=== PATIENT | male | born 1950 | race African-American/Black ===

== ENCOUNTER 2018-09-11 12:20 | Outpatient (CLI) | payer MEDICARE ==
--- NOTE | 2018-09-11 13:03 | ULT ---
SCROTAL ULTRASOUND: History: Right scrotal swelling. FINDINGS: Correlation made to a recent scrotal ultrasound, 09-02-18. Both testicles appear homogeneous. Testicles show normal blood flow with color doppler and spectral a nalysis. There is a large right hydrocele which has similar appearance to the prior study. There are small epi didymal cysts which are described previously. IMPRESSION: Large right hydrocele again noted. POS: [facility]
== END 2018-09-11 12:21 | disposition home or self-care (01) ==
LOC: SCSULT 12:20
PROVIDERS: ATTEND Specialist
DX: N50.9 Disorder of male genital organs, unspecified (principal); N43.3 Hydrocele, unspecified
CPT/HCPCS: 36415; 76870; 80053; 85025; 93976

== ENCOUNTER 2018-12-12 15:02 | Outpatient (CLI) | payer MEDICARE ==
[~2018-12-12 15:02] MED LIST: Gadobenate Dimeglumine 529 MG/1 ML (20ML VIAL) ONE
--- NOTE | 2018-12-12 17:00 | MRI ---
MRI Lumbar Spine with and without IV contrast: HISTORY: Low back pain. Chronic pain syndrome. COMPARISON: None FINDINGS: The right kidney is not visualized compatible with patient's history of prior right nephrectomy. A fe w tiny increased T2-weighted signal intensity foci are seen within the left kidney which do not demonstrate enhancement on the postcontrast images and are likely due to tiny cysts. Conus medullaris is normal in morphology and terminates at the T12-L1 level. There is generalized heterogeneity of the bone marrow. Focal area of increased T1 and T2-weighted sig nal intensity is seen in the L1 vertebral body likely due to a small hemangioma. There are endplate degenerative changes at the L3-4 level. L1-2: There is a broad-based disc osteophyte complex and mild facet hypertrophic changes. Mild narrow ing of the central spinal canal and neural foramina is present. L2-3: There is a broad-based disc osteophyte complex. Facet hypertrophic changes are seen. Mild ligam entous thickening is present with prominence of epidural fat posteriorly. Findings result in mild to moderate narrowing of the central spinal canal. There is [id number] right and severe left-si ded neural foraminal narrowing. L3-4: As noted above there are prominent endplate degenerative changes. There is loss of intervertebr al disc height. There is a broad-based disc osteophyte complex as well as facet hypertrophic changes. There is prominence of epidural fat posterior to thecal sac as well as laterally. There is m ild ligamentous thickening present at this level as well. Constellation of these findings result in moderate narrowing of the thecal sac. There is moderate to severe bilateral neural foraminal narrowin g. L4-5: There is a broad-based disc osteophyte complex present. There is severe left and moderate facet hypertrophic changes and ligamentous thickening. Findings result in severe narrowing of the central spinal canal. There is mild to moderate right and moderate to severe left-sided neural forami nal narrowing. L5-S1: There appears to be fusion of the L5 and S1 vertebral bodies with laminectomy defect seen post eriorly. No significant narrowing of the central spinal canal or neural foramina. There does appear to be mild enhancement adjacent to the facet joints at the L2-3, L3-4, and L4-5 lev els likely attributable to the inflammatory changes related to prominent facet degenerative changes. IMPRESSION: 1. Multilevel degenerative changes seen throughout the lumbar spine with prominence of the epidural f at at several levels. Multilevel neural foraminal and central canal narrowing is seen. 2. Evidence of right nephrectomy. Tiny left renal cysts are partially imaged.
== END 2018-12-12 15:03 | disposition home or self-care (01) ==
LOC: BICMRI 15:02
PROVIDERS: ATTEND Family Medicine
DX: G89.4 Chronic pain syndrome (principal); M54.5 Low back pain; M47.816 Spondylosis without myelopathy or radiculopathy, lumbar region; M48.061 Spinal stenosis, lumbar region without neurogenic claudication; N28.1 Cyst of kidney, acquired; Z90.5 Acquired absence of kidney
CPT/HCPCS: 72158; 82565

== ENCOUNTER 2021-07-17 12:50 | Inpatient (IN) | payer MEDICARE ==
[2021-07-17] MEDS ORDERED: Ondansetron PF 4 MG/2 ML Vial IVP PRN (22:16)
[2021-07-17] MEDS ORDERED: Ondansetron ODT 4 MG TAB PO PRN (22:16)
[2021-07-17] MEDS ORDERED: Acetaminophen 650 MG Suppository PR PRN (22:16)
[2021-07-17] MEDS ORDERED: Acetaminophen 325 MG TAB PO PRN (22:16)
[2021-07-18 00:17] VITALS: BMI 19.5
[2021-07-18] MEDS ORDERED: Melatonin 3 MG TAB PO SCH (01:45)
[2021-07-18 04:26] LABS: #Lymphocytes 0.8 thou/uL (1.20-3.40); #Monocytes 0.5 thou/uL (0.11-0.59); #Neutrophils 3.2 thou/uL (1.40-6.50); %Basophils 0.2 % (0.0-1.0); %Eosinophils 0.3 % (0.0-10.0); %Lymphocytes 17.8 % (21.0-51.0); %Monocytes 10.7 % (0.0-10.0); Hemoglobin 14.9 g/dL (14.0-18.0); Mean Corpuscular HGB CONC 31.4 g/dL (32.0-36.0); Mean Corpuscular Hemoglobin 25.6 pg (27.0-31.0); Mean Corpuscular Volume 81.5 fL (78.0-98.0); Mean Platelet Volume 7.1 fL (7.4-10.4); Platelet Count 316 thou/uL (130-400); RBC Distribution Width 13.9 % (11.5-14.5); Red Blood Cell (RBC) Count 5.81 mill/uL (4.70-6.10); White Blood Cell (WBC) Count 4.6 thou/uL (4.8-10.8)
[2021-07-18 04:40] LABS: Anion Gap 14 mmol/L (10-20); BUN (Urea Nitrogen) 14 mg/dL (8.4-25.7); Calc. Creatinine Clearance 43 mL/min (70-130); Calcium 9.4 mg/dL (7.8-10.44); Carbon Dioxide 27 mmol/L (23-31); Chloride 97 mmol/L (98-107); Glucose 166 mg/dL (80-115); Potassium 3.6 mmol/L (3.5-5.1); Sodium 134 mmol/L (136-145)
[2021-07-18] MEDS ORDERED: methylPREDNISolone Sod Succ 40 MG VIAL IVP SCH (09:00)
[2021-07-18] MEDS ORDERED: Enoxaparin Sodium 40 MG/0.4 ML SYRINGE SC SCH (09:00)
[2021-07-18] MEDS ORDERED: FLU VACC QS2021-22(65YR UP)/PF 240 MCG/0.7 ML SYRINGE IM ONE (09:00)
[2021-07-18] MEDS ORDERED: Azithromycin 500 MG in Sodium Chloride 0.9% 250 ML 250 ML IVPB SCH (12:00)
[2021-07-18 12:12] VITALS: BP 188/117; TEMP 97.5
[2021-07-18] MEDS ORDERED: cefTRIAXone\\ROCEPHIN 1 GM in Sodium Chloride 0.9% 100 ML IVPB SCH (13:00)
== END 2021-07-18 15:05 | disposition home or self-care (01) | DRG 193 ==
LOC: 2NO 12:50
PROVIDERS: ADMIT Internal Medicine; ATTEND Internal Medicine
DX: J18.9 Pneumonia, unspecified organism (principal); J96.01 Acute respiratory failure with hypoxia; J44.0 Chronic obstructive pulmonary disease with (acute) lower respiratory infection; J44.1 Chronic obstructive pulmonary disease with (acute) exacerbation; Z23 Encounter for immunization; E78.5 Hyperlipidemia, unspecified; F17.210 Nicotine dependence, cigarettes, uncomplicated; N28.89 Other specified disorders of kidney and ureter; R59.0 Localized enlarged lymph nodes; Z85.528 Personal history of other malignant neoplasm of kidney; Z90.5 Acquired absence of kidney; Z79.899 Other long term (current) drug therapy; Z79.82 Long term (current) use of aspirin; Z79.51 Long term (current) use of inhaled steroids
CPT/HCPCS: 36415; 80048; 85025; 90471; 90662; 90732; 94640; G0008; G0009; J1650; J2920; J7620

== ENCOUNTER 2023-12-10 21:15 | Inpatient (IN) | payer MEDICARE ==
[2023-12-10] MEDS ORDERED: Magnesium 2 GM/50 ML BAG (IN WATER) ONE (21:30)
[2023-12-10] MEDS ORDERED: Ketorolac Tromethamine 30 MG (1 mL) VIAL ONE (21:32)
[2023-12-10] MEDS ORDERED: cefTRIAXone (ROCEPHIN) 2 GM VIAL ONE (21:38)
[2023-12-10] MEDS ORDERED: Sodium Chloride 0.9% 100 ML ONE (21:39)
[2023-12-10 21:43] LABS: Hematocrit 47.8 % (42.0-52.0); Hemoglobin 15.7 g/dL (14.0-18.0); Mean Corpuscular HGB CONC 32.8 g/dL (32.0-36.0); Mean Corpuscular Hemoglobin 24.6 pg (27.0-31.0); Mean Platelet Volume 9.8 fL (7.4-10.4); Platelet Count 227 10x3/uL (130-400); RBC Distribution Width 15.7 % (11.5-14.5); Red Blood Cell (RBC) Count 6.37 mill/uL (4.70-6.10)
[2023-12-10 22:04] LABS: Anisocytosis SLIGHT = 6-15 cells HPF (0-5); Band 15 % (5-11); Eosinophils 1 % (0-10); Hypochromia SLIGHT = 6-15 cells HPF (0-5); Large Platelets 25.7 % (0-5); Lymphocytes 24 % (21-51); Microcytosis SLIGHT = 6-15 cells HPF (0-5); Monocytes 11 % (0-10); Neutrophil 49 % (42-75); Nucleated RBC (Manual Ct) 1 % (0); Platelet Adequacy Comment Platelets Normal; Reactive Lymphocytes 1 % (0-10); Target Cells SLIGHT = 2-5 cells HPF (0-1)
[2023-12-10 22:08] LABS: ALT (SGPT) 17 U/L (8-55); AST (SGOT) 38 U/L (5-34); Albumin 2.9 g/dL (3.4-4.8); Alkaline Phosphatase 54 U/L (40-110); Anion Gap 19 mmol/L (10-20); BUN (Urea Nitrogen) 14 mg/dL (8.4-25.7); Calc. Creatinine Clearance 0 mL/min (70-130); Calcium 8.2 mg/dL (7.8-10.44); Carbon Dioxide 22 mmol/L (23-31); Chloride 99 mmol/L (98-107); Estimated GFR 38; Globulin 3.1 g/dL (2.4-3.5); Glucose 86 mg/dL (83-110); Sodium 137 mmol/L (136-145)
[2023-12-10 22:11] LABS: Troponin I 0.037 ng/mL (< 0.028)
[2023-12-10 22:14] LABS: Actual Bicarbonate (HCO3a) 25.2 mEq/L (22-28); Base Excess (BEa) 1.9 mEq/L (-2.0 to +3.0); CO2 Tension 35.6 mmHg (35.0-45.0); Calcium, Ionized (arterial) 1.07 mmol/L (1.12-1.30); Carboxyhemoglobin (COHb) 1.3 gm% (0.0-3.0); Hematocrit-ABG 44 % (42.0-52.0); Hemoglobin (Hb) 15.1 g/dL (14.0-18.0); O2 Tension (PaO2), arterial 69.8 mmHg (> 70.0); Potassium - ABG Lab 2.78 mmol/L (3.70-5.30); pH, Arterial 7.468 (7.35-7.45)
[2023-12-10] MEDS ORDERED: Azithromycin 500 MG VIAL ONE (22:14)
[2023-12-10 22:15] LABS: Puncture Site ART
[2023-12-10] MEDS ORDERED: Albuterol 1.25 MG (3 mL) NEB ONE (22:31)
[2023-12-11] MEDS ORDERED: Albuterol 2.5 MG (3 mL) NEB NEB PRN (02:14)
[2023-12-11] MEDS: Ipratropium/Albuterol 3 ML NEB NEB SCH ×2 (07:24→10:42)
[2023-12-11] MEDS: Pantoprazole 40 MG VIAL IVP SCH (08:52)
[2023-12-11] MEDS: methylPREDNISolone Sod Succ 40 MG VIAL IVP SCH (08:52)
[2023-12-11] MEDS: Heparin 5,000 UNITS/ML VIAL SC SCH (08:53)
[2023-12-11 09:22] VITALS: BMI 41.5
[2023-12-11 09:32] LABS: #Basophils 0.04 10x3/uL (0.0-0.2); #Eosinphils Less than 0.03 10x3/uL (0.0-0.7); %Basophils 0.4 % (0.0-1.0); %Eosinophils 0.1 % (0.0-10.0); %Lymphocytes 12.7 % (21.0-51.0); %Monocytes 3.6 % (0.0-10.0); %Neutrophils 82.5 % (42.0-75.0); Hematocrit 49.1 % (42.0-52.0); Hemoglobin 15.7 g/dL (14.0-18.0); Mean Corpuscular Hemoglobin 24.5 pg (27.0-31.0); Mean Corpuscular Volume 76.7 fL (78.0-98.0); Mean Platelet Volume 9.4 fL (7.4-10.4); Platelet Count 229 10x3/uL (130-400); RBC Distribution Width 16.1 % (11.5-14.5)
[2023-12-11 09:57] LABS: Influenza A by NAA Not Detected (NotDetected); Influenza B by NAA Not Detected (NotDetected); SARS-CoV-2 NAA Rapid Test Not Detected (NotDetected)
[2023-12-11 09:58] LABS: ALT (SGPT) 19 U/L (8-55); AST (SGOT) 40 U/L (5-34); Albumin 2.7 g/dL (3.4-4.8); Alkaline Phosphatase 51 U/L (40-110); Anion Gap 20 mmol/L (10-20); BUN (Urea Nitrogen) 19 mg/dL (8.4-25.7); Bilirubin, Total 1.1 mg/dL (0.2-1.2); Calc. Creatinine Clearance 65 mL/min (70-130); Calcium 8.5 mg/dL (7.8-10.44); Carbon Dioxide 21 mmol/L (23-31); Chloride 101 mmol/L (98-107); Estimated GFR 36; Globulin 3.8 g/dL (2.4-3.5); Glucose 224 mg/dL (83-110); Magnesium 1.9 mg/dL (1.6-2.6); Phosphorus 3.4 mg/dL (2.3-4.7); Potassium 3.3 mmol/L (3.5-5.1); Protein, Total 6.5 g/dL (5.8-8.1); Sodium 139 mmol/L (136-145)
[2023-12-11] MEDS: Potassium Chloride 20 MEQ in Premix 1 BAG IVPB SCH (10:36)
[2023-12-11 12:44] LABS: Bacteria/HPF None Seen HPF (None Seen); Bilirubin Negative (Negative); Blood, Urine 2+ (Negative); Clarity Turbid (Clear); Glucose, Urine (Dipstick) Normal (Negative); Ketone, Urine 10 mg/dL (Negative); Leukocyte Negative Leu/uL (Negative); Nitrite Negative (Negative); Protein, Urine (Dipstick) 100 mg/dL (Neg-Trace); RBC/HPF 0-3 HPF (0-3); Specific Gravity, Urine 1.018 (1.002-1.036); Squamous Epithelial 0-3 HPF (0-3); WBC/HPF 0-3 HPF (0-3); pH, Urine 5.5 (5.0-9.0)
[2023-12-11] MEDS ORDERED: Electrolyte Replacement Protocol FS PRN (12:45)
[2023-12-11] MEDS: Electrolyte Replacement Protocol 1 EACH FS ONE (13:30)
[2023-12-11] MEDS: Magnesium 2 GM/50 ML(in water) 2 GM in Premix 1 BAG IVPB SCH (15:28)
[2023-12-11] MEDS: Furosemide 40 MG TAB PO SCH (17:49)
[2023-12-11 19:15] LABS: Potassium 3.2 mmol/L (3.5-5.1)
[2023-12-11] MEDS: cefTRIAXone\\ROCEPHIN 1 GM in Sodium Chloride 0.9% 100 ML IVPB SCH (21:15)
[2023-12-11] MEDS: Azithromycin 500 MG in Sodium Chloride 0.9% 250 ML 250 ML IVPB SCH (22:34)
[2023-12-11] MEDS: Albumin 25% 25 GM (100 mL) BOT IVPB SCH (23:54)
[2023-12-12] MEDS: Potassium Chloride 20 MEQ in Premix 1 BAG IVPB SCH (01:09)
[2023-12-12 06:25] LABS: #Basophils 0.03 10x3/uL (0.0-0.2); #Eosinphils Less than 0.03 10x3/uL (0.0-0.7); %Basophils 0.2 % (0.0-1.0); %Eosinophils 0.1 % (0.0-10.0); %Lymphocytes 6.5 % (21.0-51.0); %Monocytes 7.3 % (0.0-10.0); Hematocrit 48.5 % (42.0-52.0); Hemoglobin 15.6 g/dL (14.0-18.0); Mean Corpuscular HGB CONC 32.2 g/dL (32.0-36.0); Mean Corpuscular Hemoglobin 24.7 pg (27.0-31.0); Mean Corpuscular Volume 76.7 fL (78.0-98.0); Platelet Count 297 10x3/uL (130-400); RBC Distribution Width 17.1 % (11.5-14.5); Red Blood Cell (RBC) Count 6.32 mill/uL (4.70-6.10)
[2023-12-12 06:35] LABS: Anion Gap 18 mmol/L (10-20); BUN (Urea Nitrogen) 21 mg/dL (8.4-25.7); Calc. Creatinine Clearance 88 mL/min (70-130); Calcium 9.1 mg/dL (7.8-10.44); Carbon Dioxide 20 mmol/L (23-31); Chloride 104 mmol/L (98-107); Estimated GFR 50; Glucose 190 mg/dL (83-110); Potassium 3.5 mmol/L (3.5-5.1); Sodium 138 mmol/L (136-145)
[2023-12-12] MEDS: Pantoprazole DR 40 MG TAB PO SCH (08:42)
[2023-12-12] MEDS: Cefdinir 300 MG CAP PO SCH (08:42)
[2023-12-12] MEDS: predniSONE 20 MG TAB PO SCH (08:43)
[2023-12-12] MEDS: Azithromycin 250 MG TAB PO SCH (08:43)
[2023-12-12 10:35] LABS: Potassium 3.6 mmol/L (3.5-5.1)
[2023-12-12] MEDS: Albumin 25% 25 GM (100 mL) BOT IVPB SCH (12:33)
[2023-12-13] MEDS: Melatonin 3 MG TAB PO PRN (01:10)
[2023-12-13 05:36] VITALS: BMI 42.4
[2023-12-13 07:15] LABS: Anion Gap 13 mmol/L (10-20); BUN (Urea Nitrogen) 17 mg/dL (8.4-25.7); Calc. Creatinine Clearance 115 mL/min (70-130); Calcium 9.1 mg/dL (7.8-10.44); Carbon Dioxide 26 mmol/L (23-31); Chloride 104 mmol/L (98-107); Estimated GFR 69; Glucose 103 mg/dL (83-110); Potassium 2.9 mmol/L (3.5-5.1); Sodium 140 mmol/L (136-145)
[2023-12-13 07:25] LABS: #Basophils Less than 0.03 10x3/uL (0.0-0.2); #Eosinphils Less than 0.03 10x3/uL (0.0-0.7); %Basophils 0.1 % (0.0-1.0); %Monocytes 6.4 % (0.0-10.0); %Neutrophils 81.8 % (42.0-75.0); Hematocrit 39.7 % (42.0-52.0); Hemoglobin 13.3 g/dL (14.0-18.0); Mean Corpuscular HGB CONC 33.5 g/dL (32.0-36.0); Mean Corpuscular Hemoglobin 25.2 pg (27.0-31.0); Mean Corpuscular Volume 75.3 fL (78.0-98.0); Mean Platelet Volume 10.6 fL (7.4-10.4); Platelet Count 339 10x3/uL (130-400); RBC Distribution Width 15.5 % (11.5-14.5); Red Blood Cell (RBC) Count 5.27 mill/uL (4.70-6.10)
[2023-12-13] MEDS: Potassium Chloride 20 MEQ TAB PO SCH (08:03)
[2023-12-13] MEDS: Furosemide 100 MG (10 mL) VIAL SLOW IVP SCH (10:46)
[2023-12-13] MEDS: Furosemide 40 MG TAB PO SCH (13:04)
[2023-12-13 18:50] LABS: HBsAg Index 0.38 S/CO (0-0.99); Hep B Surf Ag NONREACTIVE S/CO (NonReactive)
[2023-12-14] MEDS ORDERED: Amlodipine 5 MG TAB PO SCH (09:00)
[2023-12-14 09:02] LABS: Anisocytosis MARKED = >30 cells HPF (0-5); Band 13 % (5-11); Eosinophils 1 % (0-10); Large Platelets 9.8 % (0-5); Lymphocytes 16 % (21-51); Macrocytosis MODERATE=16-30 cells HPF (0-5); Metamyelocyte 2 % (0-0); Monocytes 7 % (0-10); Neutrophil 62 % (42-75); Ovalocytes SLIGHT = 2-5 cells HPF (0-1); Platelet Adequacy Comment Platelets Normal; Target Cells SLIGHT = 2-5 cells HPF (0-1)
[2023-12-14] MEDS: Amlodipine 10 MG TAB PO SCH (09:07)
[2023-12-14] MEDS: Allopurinol 100 MG TAB PO SCH (09:07)
[2023-12-14] MEDS: Isosorbide Mononitrate 30 MG ER.TAB PO SCH (09:07)
[2023-12-14] MEDS: Metoprolol Tartrate 25 MG TAB PO SCH (09:08)
[2023-12-14 09:36] LABS: Hematocrit 43.2 % (42.0-52.0); Hemoglobin 14.2 g/dL (14.0-18.0); Mean Corpuscular HGB CONC 32.9 g/dL (32.0-36.0); Mean Corpuscular Hemoglobin 24.6 pg (27.0-31.0); Mean Corpuscular Volume 74.9 fL (78.0-98.0); Mean Platelet Volume 10.2 fL (7.4-10.4); Platelet Count 367 10x3/uL (130-400); RBC Distribution Width 16.1 % (11.5-14.5); Red Blood Cell (RBC) Count 5.77 mill/uL (4.70-6.10)
[2023-12-14 10:33] LABS: Anion Gap 17 mmol/L (10-20); BUN (Urea Nitrogen) 17 mg/dL (8.4-25.7); Calc. Creatinine Clearance 110 mL/min (70-130); Calcium 9.3 mg/dL (7.8-10.44); Carbon Dioxide 25 mmol/L (23-31); Chloride 108 mmol/L (98-107); Estimated GFR 66; Glucose 73 mg/dL (83-110); Potassium 3.5 mmol/L (3.5-5.1); Sodium 146 mmol/L (136-145)
[2023-12-14] MEDS: Potassium Chloride 20 MEQ TAB PO SCH (13:24)
[2023-12-14 18:02] VITALS: TEMP 97.3
[2023-12-14 18:54] VITALS: BP 135/75
== END 2023-12-14 19:11 | disposition home or self-care (01) | DRG 871 ==
LOC: ERS 21:15 → CCU 22:36 → T4-B 12-12 18:08
PROVIDERS: ADMIT Student in an Organized Health Care Education/Training Program; ATTEND Family Medicine
DX: A41.9 Sepsis, unspecified organism (principal); J18.9 Pneumonia, unspecified organism; J96.01 Acute respiratory failure with hypoxia; N17.9 Acute kidney failure, unspecified; E87.1 Hypo-osmolality and hyponatremia; J44.0 Chronic obstructive pulmonary disease with (acute) lower respiratory infection; J45.909 Unspecified asthma, uncomplicated; I10 Essential (primary) hypertension; E78.5 Hyperlipidemia, unspecified; E87.6 Hypokalemia; Z79.899 Other long term (current) drug therapy
CPT/HCPCS: 36415; 36416; 70450; 71045; 76770; 80048; 80053; 81001; 82805; 83605; 83735; 83880; 84100; 84484; 85025; 87040; 87340; 93005; 94640; 94660; C9113; J0456; J0696; J1644; J1885; J1940; J2920; J3475; J3480; J3490; J7050; J7512; J7620; P9047

== ENCOUNTER 2024-05-07 12:54 | Outpatient (CLI) | payer MEDICARE | END 2024-05-07 12:55 | disposition home or self-care (01) | LOC: CT 12:54 | PROVIDERS: ATTEND Internal Medicine Cardiovascular Disease | DX: I71.21 Aneurysm of the ascending aorta, without rupture (principal); I77.810 Thoracic aortic ectasia; K80.20 Calculus of gallbladder without cholecystitis without obstruction; I31.39 Other pericardial effusion (noninflammatory); M47.814 Spondylosis without myelopathy or radiculopathy, thoracic region; M51.34 Other intervertebral disc degeneration, thoracic region; R59.1 Generalized enlarged lymph nodes; J84.10 Pulmonary fibrosis, unspecified; J98.4 Other disorders of lung | CPT/HCPCS: 36415; 71275; 82565 ==

== ENCOUNTER 2024-06-12 13:32 | Inpatient (IN) | payer MEDICARE ==
[2024-06-12] MEDS ORDERED: Acetaminophen 325 MG TAB PO PRN (19:16)
[2024-06-12] MEDS ORDERED: Ondansetron ODT 4 MG TAB PO PRN (19:16)
[2024-06-12] MEDS ORDERED: Ondansetron PF 4 MG/2 ML Vial IVP PRN (19:16)
[2024-06-12] MEDS ORDERED: hydrALAZINE 20 MG/ML VIAL SLOW IVP PRN ×2 (19:16→19:41)
[2024-06-12 19:40] VITALS: BMI 41.9
[2024-06-12] MEDS: Aspirin 81 mg Enteric Coated Tablet PO SCH (19:58)
[2024-06-12] MEDS: Rosuvastatin 20 MG TAB PO SCH (20:00)
[2024-06-12] MEDS ORDERED: Ipratropium/Albuterol 3 ML NEB NEB PRN (22:30)
[2024-06-13] MEDS: Ipratropium/Albuterol 3 ML NEB NEB SCH ×2 (00:08→07:31)
[2024-06-13] MEDS: Mometasone 200 MCG/Formoterol 5 MCG 120 PUFF INHALER INH SCH ×2 (00:09→07:31)
[2024-06-13 05:32] LABS: #Basophils Less than 0.03 10x3/uL (0.0-0.2); #Eosinophils Less than 0.03 10x3/uL (0.0-0.7); %Basophils 0.2 % (0.0-1.0); %Lymphocytes 22.4 % (21.0-51.0); %Monocytes 3.9 % (0.0-10.0); %Neutrophils 73.2 % (42.0-75.0); Hematocrit 42.1 % (42.0-52.0); Hemoglobin 13.7 g/dL (14.0-18.0); Mean Corpuscular HGB CONC 32.5 g/dL (32.0-36.0); Mean Corpuscular Hemoglobin 24.4 pg (27.0-31.0); Mean Corpuscular Volume 74.9 fL (78.0-98.0); Mean Platelet Volume 10.2 fL (7.4-10.4); Platelet Count 276 10x3/uL (130-400); RBC Distribution Width 16.8 % (11.5-14.5); Red Blood Cell (RBC) Count 5.62 mill/uL (4.70-6.10)
[2024-06-13 05:57] LABS: Anion Gap 13 mmol/L (10-20); BUN (Urea Nitrogen) 13 mg/dL (8.4-25.7); Calc. Creatinine Clearance 102 mL/min (70-130); Calcium 9.7 mg/dL (7.8-10.44); Carbon Dioxide 23 mmol/L (23-31); Cardiac Risk 2.6 (Less than 4.5); Chloride 109 mmol/L (98-107); Cholesterol 143 mg/dl (< 200 Desired); Estimated GFR 70; Glucose 119 mg/dL (83-110); HDL Cholesterol 56 mg/dL (>60 Neg Risk); LDL Cholesterol, Calculated 75 mg/dL; Magnesium 1.9 mg/dL (1.6-2.6); Potassium 4.1 mmol/L (3.5-5.1); Sodium 141 mmol/L (136-145); Triglycerides 62 mg/dL (Less than 150)
[2024-06-13 06:52] LABS: Anisocytosis SLIGHT = 6-15 cells HPF (0-5); Elliptocytes SLIGHT = 2-5 cells HPF (0-1); Macrocytosis SLIGHT = 6-15 cells HPF (0-5); Platelet Adequacy Comment Platelets Normal; Target Cells SLIGHT = 2-5 cells HPF (0-1)
[2024-06-13] MEDS: Aspirin 81 mg Enteric Coated Tablet PO SCH (11:46)
[2024-06-13] MEDS ORDERED: Albuterol 200 PUFF (6.7GM INHALER) INH PRN (13:48)
[2024-06-13] MEDS ORDERED: HYDROcodone/Acetaminophen 10/325 mg Tablet PO PRN (13:48)
[2024-06-13 19:55] VITALS: BMI 41.9
[2024-06-13] MEDS: Varenicline Tartrate 0.5 MG TAB PO SCH (20:14)
[2024-06-14 04:03] LABS: #Basophils Less than 0.03 10x3/uL (0.0-0.2); #Eosinophils Less than 0.03 10x3/uL (0.0-0.7); %Basophils 0.3 % (0.0-1.0); %Lymphocytes 36.5 % (21.0-51.0); %Monocytes 10.2 % (0.0-10.0); %Neutrophils 52.4 % (42.0-75.0); Hematocrit 40.9 % (42.0-52.0); Hemoglobin 13.3 g/dL (14.0-18.0); Mean Corpuscular HGB CONC 32.5 g/dL (32.0-36.0); Mean Corpuscular Hemoglobin 24.3 pg (27.0-31.0); Mean Corpuscular Volume 74.6 fL (78.0-98.0); Mean Platelet Volume 9.9 fL (7.4-10.4); Platelet Count 258 10x3/uL (130-400); Red Blood Cell (RBC) Count 5.48 mill/uL (4.70-6.10)
[2024-06-14 04:29] LABS: Anion Gap 14 mmol/L (10-20); BUN (Urea Nitrogen) 15 mg/dL (8.4-25.7); Calc. Creatinine Clearance 107 mL/min (70-130); Calcium 9.3 mg/dL (7.8-10.44); Carbon Dioxide 24 mmol/L (23-31); Chloride 109 mmol/L (98-107); Estimated GFR 74; Glucose 95 mg/dL (83-110); Potassium 3.5 mmol/L (3.5-5.1); Sodium 143 mmol/L (136-145)
[2024-06-14 05:25] LABS: Microcytosis SLIGHT = 6-15 cells HPF (0-5); Platelet Adequacy Comment Platelets Normal
[2024-06-14] MEDS: Hydrocortisone 10 mg Tablet PO SCH (08:33)
[2024-06-14] MEDS: Amlodipine 10 MG TAB PO SCH (08:33)
[2024-06-14] MEDS: Isosorbide Mononitrate 30 MG ER.TAB PO SCH (08:34)
[2024-06-14] MEDS: Metoprolol Tartrate 25 MG TAB PO SCH (08:34)
[2024-06-14] MEDS: Allopurinol 100 MG TAB PO SCH (08:34)
[2024-06-14] MEDS: Furosemide 40 MG TAB PO SCH (08:34)
[2024-06-14] MEDS ORDERED: Amlodipine 5 MG TAB PO SCH (09:00)
[2024-06-15 05:42] LABS: #Basophils Less than 0.03 10x3/uL (0.0-0.2); %Basophils 0.3 % (0.0-1.0); %Eosinophils 1.5 % (0.0-10.0); %Lymphocytes 46.5 % (21.0-51.0); %Monocytes 9.6 % (0.0-10.0); %Neutrophils 41.6 % (42.0-75.0); Hematocrit 42.7 % (42.0-52.0); Hemoglobin 13.8 g/dL (14.0-18.0); Mean Corpuscular HGB CONC 32.3 g/dL (32.0-36.0); Mean Corpuscular Hemoglobin 24.8 pg (27.0-31.0); Mean Corpuscular Volume 76.7 fL (78.0-98.0); Mean Platelet Volume 9.8 fL (7.4-10.4); Platelet Count 251 10x3/uL (130-400); RBC Distribution Width 17.1 % (11.5-14.5); Red Blood Cell (RBC) Count 5.57 mill/uL (4.70-6.10)
[2024-06-15 06:05] LABS: Anion Gap 14 mmol/L (10-20); BUN (Urea Nitrogen) 14 mg/dL (8.4-25.7); Calc. Creatinine Clearance 93 mL/min (70-130); Calcium 9.1 mg/dL (7.8-10.44); Carbon Dioxide 24 mmol/L (23-31); Chloride 106 mmol/L (98-107); Estimated GFR 62; Glucose 91 mg/dL (83-110); Potassium 3.5 mmol/L (3.5-5.1); Sodium 140 mmol/L (136-145)
[2024-06-15] MEDS: FLU (Fluad Triv) TS24-25 (65UP)/MF59C/PF 45 MCG/0.5 ML Syringe IM ONE (07:59)
[2024-06-15 12:19] LABS: Thyroid Stimulating Hormone 1.0602 uIU/mL (0.35-4.94)
[2024-06-15 13:02] LABS: Free T4 (Free Thyroxine) 1.32 ng/dL (0.70-1.48)
[2024-06-16] MEDS ORDERED: Lidocaine 1% w/Epinephrine 1:100K 20 ML VIAL ONE (06:15)
[2024-06-16 11:12] VITALS: TEMP 97.5
[2024-06-16 11:16] VITALS: BP 102/63
== END 2024-06-16 12:12 | disposition home or self-care (01) | DRG 41 ==
LOC: 2SE 18:00
PROVIDERS: ADMIT Internal Medicine; ATTEND Family Medicine
PROC: 0JH602Z Insertion of Monitoring Device into Chest Subcutaneous Tissue and Fascia, Open Approach (ICD-10-PCS; principal; 2024-06-12)
DX: I63.89 Other cerebral infarction (principal); G81.91 Hemiplegia, unspecified affecting right dominant side; J44.1 Chronic obstructive pulmonary disease with (acute) exacerbation; Z68.41 Body mass index [BMI] 40.0-44.9, adult; I10 Essential (primary) hypertension; E78.5 Hyperlipidemia, unspecified; F17.210 Nicotine dependence, cigarettes, uncomplicated; E66.01 Morbid (severe) obesity due to excess calories; R47.1 Dysarthria and anarthria; M10.9 Gout, unspecified; R29.810 Facial weakness; Z85.828 Personal history of other malignant neoplasm of skin
CPT/HCPCS: 33285; 36415; 70551; 80048; 80061; 83735; 84439; 84443; 84481; 85025; 93306; 94640; 94664; J7620